=== PATIENT | female | born 1990 | race African-American/Black ===

== ENCOUNTER 2019-04-01 07:28 | Inpatient (IN) | payer MEDICAID ==
[~2019-04-01] VITALS: Ht 162.6 cm; Wt 78.0 kg
[~2019-04-01 07:28] MED LIST: IBUP-1223 PO; OXYC-302 PO
[2019-04-01] MEDS ORDERED: LIDOCAINE 1%, 20ML ONE (07:31)
[2019-04-01] MEDS ORDERED: NEWBORN KIT ONE (07:31)
[2019-04-01] MEDS ORDERED: MISOPROSTOL 200 MCG TABLET ONE (07:31)
[2019-04-01] MEDS ORDERED: OXYTOCIN 30U/ 0.9% NaCL 500ML 500 ML ONE ×2 (07:31→10:34)
[2019-04-01] MEDS ORDERED: D5%-LACTATED RINGERS 1,000 ML IV SCH (07:37)
[2019-04-01] MEDS ORDERED: OXYTOCIN 30U/ 0.9% NaCL 500ML 500 ML IV ONE (07:37)
[2019-04-01] MEDS ORDERED: LACTATED RINGERS 1,000 ML IV SCH ×2 (07:37→08:53)
[2019-04-01] MEDS ORDERED: FENTANYL PF 100 MCG/2ML ONE (07:52)
[2019-04-01] MEDS ORDERED: FENTANYL PF 100 MCG/2ML IV PRN (08:00)
[2019-04-01] MEDS ORDERED: ONDANSETRON 2MG/ML, 2ML IVPush PRN (08:00)
[2019-04-01] MEDS ORDERED: CALCIUM CARBONATE 500 MG TAB.CHEW PO PRN (08:00)
[2019-04-01] MEDS ORDERED: TERBUTALINE 1 MG/ML, 1ML SQ PRN (08:00)
[2019-04-01] MEDS ORDERED: FENTANYL PF 100 MCG/2ML IVPush PRN (08:00)
[2019-04-01] MEDS ORDERED: TERBUTALINE 1 MG/ML, 1ML IVPush PRN (08:00)
[2019-04-01 08:06] LABS: BASOPHILS # (AUTO) 0.02 x10^3/uL (0-0.1); BASOPHILS % (AUTO) 0 % (0-1); EOSINOPHILS # (AUTO) 0.01 x10^3/uL (0-0.4); EOSINOPHILS % (AUTO) 0 % (1-7); LYMPHOCYTES # (AUTO) 1.04 x10^3/uL (1-3.4); LYMPHOCYTES % (AUTO) 16 % (22-44); MD NO; MEAN CORPUSCULAR HEMOGLOBIN 25.9 pg (27.0-34.8); MEAN CORPUSCULAR HGB CONC 32.7 g/dL (32.4-35.8); MEAN CORPUSCULAR VOLUME 79.3 fL (80-100); MEAN PLATELET VOLUME 8.9 fL (7.4-10.4); MONOCYTES # (AUTO) 0.41 x10^3/uL (0.2-0.8); MONOCYTES % (AUTO) 6 % (2-9); NEUTROPHILS # (AUTO) 4.92 x10^3/uL (1.8-6.8); NEUTROPHILS % (AUTO) 77 % (42-75); PLATELET COUNT 140 x10^3/uL (130-400); RED BLOOD COUNT 4.34 x10^6/uL (3.82-5.3); RED CELL DISTRIBUTION WIDTH 14.1 % (9.6-15.2)
[2019-04-01] MEDS ORDERED: LIDOCAINE/PF 1.5%-EPI 1:200K, 30ML ONE (08:19)
[2019-04-01] MEDS ORDERED: FENTANYL/BUPIV./NS/PF 250 ML EPIDCONT SCH (08:53)
[2019-04-01] MEDS ORDERED: LACTATED RINGERS 1,000 ML IVBOLUS PRN (09:00)
[2019-04-01] MEDS ORDERED: NALOXONE 0.4 MG/ML, 1ML IVPush PRN (09:00)
[2019-04-01] MEDS ORDERED: FENTANYL PF 500 MCG, BUPIVACAINE/PF 0.5%, 30ML 62.5 ML in SODIUM CHLORIDE 0.9% 177.5 ML EPIDCONT SCH (09:00)
[2019-04-01] MEDS ORDERED: EPHEDRINE 50 MG/ML, 1ML IVPush PRN (09:00)
[2019-04-01] MEDS ORDERED: SIMETHICONE 80 MG CHEW TAB PO PRN (10:30)
[2019-04-01] MEDS ORDERED: MISOPROSTOL 200 MCG TABLET PR PRN (10:30)
[2019-04-01] MEDS ORDERED: ONDANSETRON 2MG/ML, 2ML IV PRN (10:30)
[2019-04-01] MEDS ORDERED: OXYcodone IR 5MG TABLET PO PRN (10:30)
[2019-04-01] MEDS ORDERED: ACETAMINOPHEN 325 MG TABLET PO PRN (10:30)
[2019-04-01] MEDS ORDERED: IBUPROFEN 600 MG TABLET ONE (10:33)
[2019-04-01] MEDS ORDERED: OXYcodone/APAP 5/325MG TABLET ONE (10:34)
[2019-04-01] MEDS: OXYcodone/APAP 5/325MG TABLET PO PRN ×2 (10:36→19:35)
[2019-04-01] MEDS: OXYTOCIN 30U/ 0.9% NaCL 500ML 500 ML IV SCH ×2 (10:38→20:26)
[2019-04-01 12:45] VITALS: BP 117/75
[2019-04-01 16:30] VITALS: BP 108/69
[2019-04-01 18:13] LABS: BASOPHILS # (AUTO) 0.03 x10^3/uL (0-0.1); BASOPHILS % (AUTO) 0 % (0-1); EOSINOPHILS % (AUTO) 0 % (1-7); LYMPHOCYTES # (AUTO) 1.14 x10^3/uL (1-3.4); LYMPHOCYTES % (AUTO) 10 % (22-44); MD NO; MEAN CORPUSCULAR HEMOGLOBIN 26.2 pg (27.0-34.8); MEAN CORPUSCULAR HGB CONC 32.6 g/dL (32.4-35.8); MEAN CORPUSCULAR VOLUME 80.3 fL (80-100); MEAN PLATELET VOLUME 8.9 fL (7.4-10.4); MONOCYTES # (AUTO) 0.79 x10^3/uL (0.2-0.8); MONOCYTES % (AUTO) 7 % (2-9); NEUTROPHILS # (AUTO) 9.27 x10^3/uL (1.8-6.8); NEUTROPHILS % (AUTO) 83 % (42-75); PLATELET COUNT 170 x10^3/uL (130-400); RED BLOOD COUNT 4.45 x10^6/uL (3.82-5.3); RED CELL DISTRIBUTION WIDTH 14.4 % (9.6-15.2)
[2019-04-01 19:10] VITALS: BP 115/73
[2019-04-01] MEDS: DOCUSATE 100 MG CAPSULE PO PRN (19:33)
[2019-04-01] MEDS: IBUPROFEN 600 MG TABLET PO PRN (19:35)
[2019-04-01 23:44] VITALS: BP 104/66
[2019-04-02 04:00] VITALS: BP 103/66
[2019-04-02] MEDS: OXYTOCIN 30U/ 0.9% NaCL 500ML 500 ML IV SCH ×2 (06:26→16:26)
[2019-04-02 06:50] VITALS: BP 107/69
[2019-04-02] MEDS: PRENATAL VIT/IRON/FA 1 EACH TABLET PO SCH (08:24)
[2019-04-02] MEDS: DOCUSATE 100 MG CAPSULE PO PRN ×2 (08:24→21:19)
[2019-04-02] MEDS: IBUPROFEN 600 MG TABLET PO PRN ×3 (08:25→21:20)
[2019-04-02] MEDS: OXYcodone/APAP 5/325MG TABLET PO PRN ×2 (08:25→21:20)
[2019-04-02 20:00] VITALS: BP 101/66
[2019-04-03] MEDS: OXYTOCIN 30U/ 0.9% NaCL 500ML 500 ML IV SCH (02:26)
[2019-04-03] MEDS ORDERED: IBUP-1222 PO (06:27)
[2019-04-03 08:30] VITALS: BP 122/83
[2019-04-03] MEDS: PRENATAL VIT/IRON/FA 1 EACH TABLET PO SCH (09:09)
[2019-04-03] MEDS: IBUPROFEN 600 MG TABLET PO PRN (09:09)
[2019-04-03] MEDS: DOCUSATE 100 MG CAPSULE PO PRN (09:09)
== END 2019-04-03 10:57 | disposition home or self-care (01) | DRG 807 ==
LOC: LDIP 07:28 → 2NW 12:30
PROVIDERS: ADMIT Obstetrics & Gynecology; ATTEND Obstetrics & Gynecology
PROC: 10E0XZZ Delivery of Products of Conception, External Approach (ICD-10-PCS; principal; 2019-04-01)
PROC: 0UQMXZZ Repair Vulva, External Approach (ICD-10-PCS; 2019-04-01)
PROC: 3E0R3BZ Introduction of Anesthetic Agent into Spinal Canal, Percutaneous Approach (ICD-10-PCS; 2019-04-01)
PROC: 00HU33Z Insertion of Infusion Device into Spinal Canal, Percutaneous Approach (ICD-10-PCS; 2019-04-01)
DX: O71.82 Other specified trauma to perineum and vulva (principal); Z37.0 Single live birth; Z3A.36 36 weeks gestation of pregnancy; Z88.0 Allergy status to penicillin
CPT/HCPCS: 36415; J3490; 85025; 86850; 86900; G0378; J3010; J2590; J7050; J7120